=== PATIENT | female | born 1990 | race Caucasian/White ===

== ENCOUNTER 2016-10-11 22:22 | Emergency (ER) | payer SELFPAY ==
[~2016-10-11] VITALS: Ht 170.2 cm; Wt 75.0 kg
[2016-10-11 23:16] VITALS: BP 118/68
== END 2016-10-12 08:08 | disposition left against medical advice (07) ==
LOC: ER 10-12 08:06
DX: O26.892 Other specified pregnancy related conditions, second trimester (principal); R10.9 Unspecified abdominal pain; Z53.21 Procedure and treatment not carried out due to patient leaving prior to being seen by health care provider; Z3A.00 Weeks of gestation of pregnancy not specified

== ENCOUNTER 2018-12-11 23:23 | Inpatient (IN) | payer MEDICAID ==
[~2018-12-11] VITALS: Ht 167.6 cm; Wt 117.9 kg
[2018-12-12] MEDS ORDERED: DEXT 5%/LR + PITOCIN 20UNITS/L 1,000 ML IV SCH (00:27)
[2018-12-12] MEDS ORDERED: NALOXONE HCL 0.4 MG/ML 1ML VIAL IM PRN (00:30)
[2018-12-12] MEDS ORDERED: CARBOPROST TROMETHAMINE 250 MCG/ML AMPUL IM PRN (00:30)
[2018-12-12] MEDS ORDERED: LIDOCAINE HCL 1% 20ML VIAL (Pyxis) INJ INFIL SCH (00:30)
[2018-12-12] MEDS ORDERED: BUTORPHANOL TARTRATE 2 MG/ML VIAL IV PRN (00:30)
[2018-12-12] MEDS ORDERED: METHYLERGONOVINE MALEATE 0.2 MG/ML IM PRN (00:30)
[2018-12-12] MEDS: LACTATED RINGERS 1,000 ML IV SCH ×2 (01:08→03:02)
[2018-12-12 01:51] LABS: BASOPHILS % 0.5 % (0.0-2.0); EOSINOPHILS % 3.2 % (0.0-5.0); HEMATOCRIT. 32.8 % (36.0-48.0); LYMPHOCYTES % 28.3 % (20.0-50.0); MEAN CORPUSCULAR HEMOGLOBIN 28.4 pg (28.0-32.0); MEAN CORPUSCULAR VOLUME 84.6 fL (81.0-99.0); MEAN PLATELET VOLUME 10.1 fl (7.4-10.4); MONOCYTES % 10.3 % (2.0-8.0); NEUTROPHILS % 57.7 % (40.0-76.0); PLATELET 200 x1000/uL (130-400); RED BLOOD CELL COUNT 3.88 mill/uL (4.2-5.4); RED CELL DISTRIBUTION WIDTH 13.8 % (11.6-14.6)
[2018-12-12 01:58] LABS: PARTIAL THROMBOPLASTIN TIME 26.8 sec (23.4-31.0)
[2018-12-12 02:08] LABS: CLARITY URINE CLOUDY (CLEAR); COLOR URINE YELLOW (YELLOW); KETONES URINE NEGATIVE (NEGATIVE); LEUKOCYTE ESTERASE URINE NEGATIVE (NEGATIVE); NITRITE URINE NEGATIVE (NEGATIVE); OCCULT BLOOD URINE NEGATIVE (NEGATIVE); PROTEIN URINE TRACE (NEGATIVE); SPECIFIC GRAVITY URINE 1.028 (1.005-1.030); UROBILINOGEN URINE 0.2 E.U./dL (0.2-1.0)
[2018-12-12] MEDS ORDERED: LEVO200T8 PO (02:10)
[2018-12-12] MEDS ORDERED: PREN-176 MT (02:11)
[2018-12-12 02:34] LABS: *COCAINE SCREEN URINE NEGATIVE (NEGATIVE); METHADONE URINE SCREEN NEGATIVE (NEGATIVE); OPIATES URINE SCREEN NEGATIVE (NEGATIVE)
[2018-12-12 02:35] LABS: *AMPHETAMINES SCREEN URINE NEGATIVE (NEGATIVE); *BENZODIAZEPINES SCREEN URINE NEGATIVE (NEGATIVE); CANNABINOID URINE SCREEN NEGATIVE (NEGATIVE); PHENCYCLIDINE URINE SCREEN NEGATIVE (NEGATIVE)
[2018-12-12 02:38] LABS: *BARBITURATES SCREEN URINE NEGATIVE (NEGATIVE)
[2018-12-12] MEDS ORDERED: ROPIVACAINE HCL/PF EPIDURAL 200 ML EPI SCH (02:45)
[2018-12-12] MEDS ORDERED: IBUPROFEN 400MG TABLET PO PRN (04:45)
[2018-12-12] MEDS ORDERED: RHO(D) IMMUNE GLOBULIN 300 MCG/SYR IM PRN (04:45)
[2018-12-12] MEDS: DEXT 5%/LR + PITOCIN 20UNITS/L 1,000 ML IV SCH ×2 (05:24→06:43)
[2018-12-12 05:31] LABS: HEPATITIS B SURFACE ANTIGEN NEGATIVE
[2018-12-12] MEDS ORDERED: MISOPROSTOL 200MCG TABLET RC NR (06:00)
[2018-12-12] MEDS: IBUPROFEN 800MG TABLET PO PRN (09:15)
[2018-12-12 11:27] VITALS: BP 129/80
[2018-12-12] MEDS ORDERED: PRENATAL VIT/FE FUMARATE/FA TABLET PO SCH (13:45)
[2018-12-12] MEDS ORDERED: LEVOTHYROXINE SODIUM 125MCG TABLET PO SCH (13:45)
[2018-12-12] MEDS ORDERED: LEVOTHYROXINE SODIUM 200MCG TABLET PO SCH (14:00)
[2018-12-12 17:30] VITALS: BP 109/72
[2018-12-12 19:30] VITALS: BP 113/66
[2018-12-13 04:00] VITALS: BP 98/50
[2018-12-13] MEDS ORDERED: LEVOTHYROXINE SODIUM 200MCG TABLET PO SCH (07:00)
[2018-12-13 07:03] LABS: BASOPHILS % 0.7 % (0.0-2.0); EOSINOPHILS % 3.1 % (0.0-5.0); HEMATOCRIT. 31.1 % (36.0-48.0); HEMOGLOBIN. 10.4 g/dL (12.0-16.0); LYMPHOCYTES % 30.9 % (20.0-50.0); MEAN CORPUSCULAR HEMOGLOBIN 28.5 pg (28.0-32.0); MEAN CORPUSCULAR VOLUME 85.1 fL (81.0-99.0); MEAN PLATELET VOLUME 10.4 fl (7.4-10.4); MONOCYTES % 10.4 % (2.0-8.0); NEUTROPHILS % 54.9 % (40.0-76.0); PLATELET 193 x1000/uL (130-400); RED BLOOD CELL COUNT 3.66 mill/uL (4.2-5.4); RED CELL DISTRIBUTION WIDTH 14.4 % (11.6-14.6)
[2018-12-13 07:34] VITALS: BP 107/53
[2018-12-13] MEDS: IBUPROFEN 800MG TABLET PO PRN ×2 (15:41→22:00)
[2018-12-13 15:58] VITALS: BP 116/76
[2018-12-13 20:34] VITALS: BP 103/58
[2018-12-14 03:56] VITALS: BP 121/66
[2018-12-14] MEDS: IBUPROFEN 800MG TABLET PO PRN (05:57)
[2018-12-14] MEDS ORDERED: LEVOTHYROXINE SODIUM 125MCG TABLET PO SCH (07:00)
[2018-12-14] MEDS ORDERED: TETANUS, DIPHTHERIA, PERTUSSIS VAC/PF 0.5ML (>7YR OLD) IM ONE (08:00)
[2018-12-14 08:30] VITALS: BP 116/60
== END 2018-12-14 12:00 | disposition home or self-care (01) | DRG 560 ==
LOC: OBSVTOIN 23:23 → 8 EST LDRP 23:23 → 8EST 12-12 08:00
PROVIDERS: ADMIT Obstetrics & Gynecology; ATTEND Obstetrics & Gynecology
PROC: 10E0XZZ Delivery of Products of Conception, External Approach (ICD-10-PCS; principal; 2018-12-12)
PROC: 3E0R3BZ Introduction of Anesthetic Agent into Spinal Canal, Percutaneous Approach (ICD-10-PCS; 2018-12-12)
PROC: 00HU33Z Insertion of Infusion Device into Spinal Canal, Percutaneous Approach (ICD-10-PCS; 2018-12-12)
DX: O99.284 Endocrine, nutritional and metabolic diseases complicating childbirth (principal); D62 Acute posthemorrhagic anemia; O99.214 Obesity complicating childbirth; O69.81X0 Labor and delivery complicated by cord around neck, without compression, not applicable or unspecified; O99.02 Anemia complicating childbirth; E66.01 Morbid (severe) obesity due to excess calories; E03.9 Hypothyroidism, unspecified; Z37.0 Single live birth; Z3A.39 39 weeks gestation of pregnancy
CPT/HCPCS: 36415; 80305; 81003; 86592; 86703; 86762; 86850; 86900; 87340; 99281; J2210; J2590; J2795; J7120; A4315

== ENCOUNTER 2024-01-21 12:50 | Emergency (ER) | payer MEDICAID ==
[~2024-01-21] VITALS: Ht 172.7 cm; Wt 129.0 kg
[~2024-01-21 12:50] MED LIST: LEVO200T8 PO; PREN-176 MT
[2024-01-21 13:00] VITALS: O2SAT 96
[2024-01-21] MEDS ORDERED: TETR-80 OP (14:53)
[2024-01-21 15:20] VITALS: BP 132/88; PULSE 84; RESP 16; TEMP 36.55848; O2SAT 95
[2024-01-21] MEDS ORDERED: OCUFLX LEFTEYE (15:21)
== END 2024-01-21 15:25 | disposition home or self-care (01) ==
LOC: ER 12:50
DX: H00.016 Hordeolum externum left eye, unspecified eyelid (principal); E03.9 Hypothyroidism, unspecified; E11.9 Type 2 diabetes mellitus without complications
CPT/HCPCS: 99283